=== PATIENT | male | born 1940 | race Two or more races ===

== ENCOUNTER 2024-06-01 14:40 | Inpatient (IN) | payer OTHER ==
[~2024-06-01] VITALS: Ht 182.9 cm; Wt 95.3 kg
[2024-06-01 15:46] VITALS: BP 125/59; TEMP 97.9; O2SAT 94
[2024-06-01] MEDS ORDERED: ACET-3117 PO (16:28)
[2024-06-01] MEDS ORDERED: INSU100V SQ (16:28)
[2024-06-01] MEDS ORDERED: ENOX40DI SQ (16:28)
[2024-06-01] MEDS ORDERED: TAMS-3 PO (16:28)
[2024-06-01] MEDS ORDERED: DULO60CA45 PO (16:28)
[2024-06-01] MEDS ORDERED: GABA-532 PO (16:28)
[2024-06-01] MEDS ORDERED: MAGN400O6 PO (16:28)
[2024-06-01] MEDS ORDERED: ONDANSETRON 4 MG/2 ML VIAL IV PRN (18:45)
[2024-06-01] MEDS ORDERED: REMEDY ESSENTIAL ZINC PASTE 113 GM TP PRN (18:45)
[2024-06-01] MEDS ORDERED: DEXTROSE 50% 50 ML DISP.SYRIN IV PRN (18:45)
[2024-06-01] MEDS ORDERED: ACETAMINOPHEN 325 MG TABLET PO PRN (18:45)
[2024-06-01] MEDS: MORPHINE SULFATE 4 MG/1 ML DISP.SYRIN IV PRN (19:05)
[2024-06-01] MEDS: LACTULOSE 20 G/30 ML LIQUID UDC PO ONE (19:30)
[2024-06-01 19:38] VITALS: BP 137/58; TEMP 98.8; O2SAT 94
[2024-06-01] MEDS: SENNOSIDES 1 TABLET PO SCH (20:35)
[2024-06-01] MEDS: BLOOD SUGAR DIAGNOSTIC 1 EACH STRIP VI SCH (20:37)
[2024-06-01] MEDS: INSULIN REGULAR, HUMAN 1000 UNIT/10 ML VIAL SQ PRN (20:39)
[2024-06-02 06:16] VITALS: BP 130/59; TEMP 97.4; O2SAT 92
[2024-06-02] MEDS: PANTOPRAZOLE SODIUM 40 MG TABLET.DR PO SCH (06:45)
[2024-06-02 07:04] LABS: BASOPHILS % (AUTO) 0.3 % (0.0-2.0); EOSINOPHILS # (AUTO) 0.2 K/uL (0.0-0.7); EOSINOPHILS % (AUTO) 1.9 % (0.0-7.0); HEMATOCRIT 31.6 % (36.7-47.1); HEMOGLOBIN 10.9 g/dL (12.5-16.3); LYMPHOCYTES # (AUTO) 0.5 K/uL (0.8-4.8); LYMPHOCYTES % (AUTO) 5.8 % (20.5-51.5); MEAN CORPUSCULAR HEMOGLOBIN 29.3 uug (23.8-33.4); MEAN CORPUSCULAR HGB CONC 34 g/dL (32.5-36.3); MONOCYTES # (AUTO) 0.3 K/uL (0.1-1.30); MONOCYTES % (AUTO) 3.3 % (0.0-11.0); NEUTROPHILS # (AUTO) 7.5 K/uL (1.8-8.9); NEUTROPHILS % (AUTO) 88.7 % (38.5-71.5); PLATELET COUNT (AUTO) 358 K/uL (152-348); RED BLOOD CELL COUNT(AUTO) 3.72 MIL/uL (4.06-5.63); RED CELL DISTRIBUTION WIDTH 17.3 % (12.1-16.2); WHITE BLOOD COUNT (AUTO) 8.5 K/uL (3.6-10.2)
[2024-06-02 07:23] LABS: DIFFERENTIAL COMMENT 1
[2024-06-02 07:33] LABS: CALCIUM 8.7 mg/dL (8.5-10.1); CARBON DIOXIDE 30 mmol/L (21-32); CHLORIDE 100 mmol/L (98-107); CHOLESTEROL 193 mg/dL (<200); CREATININE 0.9 mg/dL (0.6-1.3); GLUCOSE 267 mg/dL (74-106); HDL CHOLESTEROL 34 mg/dL (40-60); MAGNESIUM 1.8 mg/dL (1.8-2.4); PHOSPHOROUS 2.9 mg/dL (2.5-4.9); POTASSIUM 4.3 mmol/L (3.5-5.1); SODIUM SERUM 135 mmol/L (136-145); TRIGLYCERIDES 206 MG/DL (30-150); UREA NITROGEN, BLOOD 20 mg/dL (7-18)
[2024-06-02] MEDS: GABAPENTIN 100 MG CAPSULE PO SCH (08:23)
[2024-06-02] MEDS: MIRALAX 17 GM POWD.PACK PO SCH (08:23)
[2024-06-02] MEDS: TAMSULOSIN HCL 0.4 MG CAP.SR.24H PO SCH (08:24)
[2024-06-02] MEDS: ENOXAPARIN SODIUM 40 MG/0.4 ML DISP.SYRIN SQ SCH (08:24)
[2024-06-02] MEDS ORDERED: INSU3INS6 SQ (09:46)
[2024-06-02 11:31] VITALS: BP 143/53; TEMP 98.6; O2SAT 94
[2024-06-02] MEDS: GOLYTELY 4000 ML BOTTLE PO ONE (12:51)
[2024-06-02 15:24] VITALS: BP 135/58; TEMP 98.2; O2SAT 94
[2024-06-02 19:35] VITALS: BP 130/67; TEMP 98.3; O2SAT 93
[2024-06-03 06:25] VITALS: BP 117/63; TEMP 97.8; O2SAT 96
[2024-06-03 07:07] LABS: BASOPHILS % (AUTO) 0.5 % (0.0-2.0); EOSINOPHILS # (AUTO) 0.1 K/uL (0.0-0.7); EOSINOPHILS % (AUTO) 1.6 % (0.0-7.0); HEMATOCRIT 32.4 % (36.7-47.1); HEMOGLOBIN 10.9 g/dL (12.5-16.3); LYMPHOCYTES # (AUTO) 0.7 K/uL (0.8-4.8); LYMPHOCYTES % (AUTO) 8.9 % (20.5-51.5); MEAN CORPUSCULAR HEMOGLOBIN 28.6 uug (23.8-33.4); MEAN CORPUSCULAR HGB CONC 34 g/dL (32.5-36.3); MEAN CORPUSCULAR VOLUME 84.8 fL (73.0-96.2); MONOCYTES # (AUTO) 0.2 K/uL (0.1-1.30); MONOCYTES % (AUTO) 3.2 % (0.0-11.0); NEUTROPHILS # (AUTO) 6.4 K/uL (1.8-8.9); NEUTROPHILS % (AUTO) 85.8 % (38.5-71.5); PLATELET COUNT (AUTO) 352 K/uL (152-348); RED BLOOD CELL COUNT(AUTO) 3.82 MIL/uL (4.06-5.63); RED CELL DISTRIBUTION WIDTH 17.1 % (12.1-16.2); WHITE BLOOD COUNT (AUTO) 7.5 K/uL (3.6-10.2)
[2024-06-03 07:13] LABS: CALCIUM 8.7 mg/dL (8.5-10.1); CARBON DIOXIDE 28 mmol/L (21-32); CHLORIDE 103 mmol/L (98-107); CREATININE 0.9 mg/dL (0.6-1.3); GLUCOSE 239 mg/dL (74-106); MAGNESIUM 1.9 mg/dL (1.8-2.4); PHOSPHOROUS 3.1 mg/dL (2.5-4.9); POTASSIUM 3.9 mmol/L (3.5-5.1); SODIUM SERUM 140 mmol/L (136-145); UREA NITROGEN, BLOOD 20 mg/dL (7-18)
[2024-06-03 07:17] LABS: DIFFERENTIAL COMMENT 1
[2024-06-03] MEDS: INSULIN GLARGINE,HUM 300 UNITS/3 ML CARTRIDGE SQ SCH (09:50)
[2024-06-03 11:32] VITALS: BP 123/54; TEMP 98.8; O2SAT 96
[2024-06-03] MEDS ORDERED: PROPOFOL 200 MG/20 ML BOTTLE ONE (12:00)
[2024-06-03 16:00] VITALS: BP 122/50; TEMP 98.8; O2SAT 95
[2024-06-03 19:42] VITALS: BP 101/53; TEMP 98.2; O2SAT 98
[2024-06-04 06:00] VITALS: BP 111/73; TEMP 99.2; O2SAT 97
[2024-06-04] MEDS: MORPHINE SULFATE 2 MG/1 ML DISP.SYRIN IV ONE (06:29)
[2024-06-04 07:35] VITALS: BP 141/61; TEMP 97.6; O2SAT 97
[2024-06-04] MEDS: MUPIROCIN 2% OINT 22 GM TUBE NS SCH (08:11)
[2024-06-04 11:47] VITALS: BP 127/44; TEMP 97.3; O2SAT 99
[2024-06-04 16:00] VITALS: BP 115/55; TEMP 98; O2SAT 98
[2024-06-04 21:23] VITALS: BP 118/52; TEMP 97.7; O2SAT 96
[2024-06-05 00:46] VITALS: BP 124/50; TEMP 98.1; O2SAT 94
[2024-06-05 04:52] VITALS: BP 132/58; TEMP 98.1; O2SAT 96
[2024-06-05 11:37] VITALS: BP 116/59; TEMP 98.2; O2SAT 94
[2024-06-05 12:09] LABS: BASOPHILS % (AUTO) 0.4 % (0.0-2.0); EOSINOPHILS # (AUTO) 0.1 K/uL (0.0-0.7); EOSINOPHILS % (AUTO) 2.2 % (0.0-7.0); HEMATOCRIT 34.2 % (36.7-47.1); HEMOGLOBIN 11.1 g/dL (12.5-16.3); LYMPHOCYTES # (AUTO) 0.5 K/uL (0.8-4.8); LYMPHOCYTES % (AUTO) 8.5 % (20.5-51.5); MEAN CORPUSCULAR HGB CONC 33 g/dL (32.5-36.3); MEAN CORPUSCULAR VOLUME 85.8 fL (73.0-96.2); MONOCYTES # (AUTO) 0.2 K/uL (0.1-1.30); MONOCYTES % (AUTO) 3.5 % (0.0-11.0); NEUTROPHILS # (AUTO) 5.4 K/uL (1.8-8.9); NEUTROPHILS % (AUTO) 85.4 % (38.5-71.5); PLATELET COUNT (AUTO) 332 K/uL (152-348); RED BLOOD CELL COUNT(AUTO) 3.98 MIL/uL (4.06-5.63); RED CELL DISTRIBUTION WIDTH 17.3 % (12.1-16.2); WHITE BLOOD COUNT (AUTO) 6.3 K/uL (3.6-10.2)
[2024-06-05] MEDS: METOPROLOL TARTRATE 25 MG TABLET PO SCH (12:09)
[2024-06-05 12:20] LABS: CALCIUM 8.6 mg/dL (8.5-10.1); CARBON DIOXIDE 31 mmol/L (21-32); CHLORIDE 101 mmol/L (98-107); CREATININE 1.1 mg/dL (0.6-1.3); GLUCOSE 257 mg/dL (74-106); MAGNESIUM 1.7 mg/dL (1.8-2.4); POTASSIUM 4.2 mmol/L (3.5-5.1); SODIUM SERUM 138 mmol/L (136-145); UREA NITROGEN, BLOOD 22 mg/dL (7-18)
[2024-06-05 12:29] LABS: DIFFERENTIAL COMMENT 1
[2024-06-05] MEDS: MAGNESIUM OXIDE 400 MG TABLET PO ONE (14:47)
[2024-06-05 17:11] LABS: *BILIRUBIN,URIN NEGATIVE (NEGATIVE); *BLOOD, URINE 1+ (NEGATIVE); *CLARITY,URINE CLEAR (CLEAR); *COLOR,URINE YELLOW (YELLOW); *KETONES,URINE NEGATIVE (NEGATIVE); *PROTEIN,URINE NEGATIVE (NEGATIVE); *UROBILINOGEN,URINE 0.2 E.U./dl (NORMAL); LEUKOCYTE ESTERASE ,URINE 1+ (NEGATIVE); NITRITE, URINE NEGATIVE (NEGATIVE); PH,URINE 5.5 (5.0-8.0); UGLUCOSE NEGATIVE (NEGATIVE)
[2024-06-05 17:24] VITALS: BP 107/51; TEMP 98.3; O2SAT 94
[2024-06-05 17:24] LABS: BACTERIA,URINE FEW /HPF (NONE SEEN); SQUAMOUS EPITHELIAL CELL,UR FEW /HPF (NONE SEEN); WBC,URINE 20-50 /HPF (0-3)
[2024-06-05 19:14] VITALS: BP 109/62; TEMP 98.5; O2SAT 94
[2024-06-05] MEDS ORDERED: CEFTRIAXONE 1 G VIAL IM SCH (20:00)
[2024-06-05] MEDS ORDERED: CEFTRIAXONE 1 G VIAL IV SCH (20:00)
[2024-06-05] MEDS: CEFTRIAXONE 1 G in IV DEXTROSE 5% 50 ML IV SCH (20:21)
[2024-06-06] VITALS (8 sets, daily range): BP systolic 108–137; BP diastolic 48–62; TEMP 98–98.6; O2SAT 93–96
[2024-06-06] MEDS: LACTULOSE 20 G/30 ML LIQUID UDC PO PRN (03:46)
[2024-06-06] MEDS ORDERED: diphenhydrAMINE 25 MG CAP PO ONE (04:45)
[2024-06-06] MEDS: diphenhydrAMINE 25 MG CAP PO ONE (05:13)
[2024-06-06 07:09] LABS: CALCIUM 8.9 mg/dL (8.5-10.1); CARBON DIOXIDE 31 mmol/L (21-32); CHLORIDE 104 mmol/L (98-107); CREATININE 1.1 mg/dL (0.6-1.3); GLUCOSE 176 mg/dL (74-106); MAGNESIUM 1.9 mg/dL (1.8-2.4); POTASSIUM 4.1 mmol/L (3.5-5.1); SODIUM SERUM 140 mmol/L (136-145); UREA NITROGEN, BLOOD 19 mg/dL (7-18)
[2024-06-06] MEDS: MAGNESIUM SULFATE/D5W 100 ML IV SCH (09:49)
[2024-06-06] MEDS: GLUCERNA SHAKE 237 ML CAN PO SCH (16:51)
[2024-06-07] VITALS (9 sets, daily range): BP systolic 106–142; BP diastolic 42–70; TEMP 97.8–98.6; O2SAT 96–100
[2024-06-07] MEDS ORDERED: VANCOMYCIN 1000 MG VIAL ONE (11:22)
[2024-06-07] MEDS ORDERED: TRANEXAMIC ACID 1,000 MG/10 ML VIAL ONE (11:35)
[2024-06-07] MEDS ORDERED: HYDROMORPHONE 2 MG/1 ML DISP.SYRIN ONE (11:36)
[2024-06-07] MEDS ORDERED: FENTANYL CITRATE 100 MCG/2 ML AMPUL ONE (11:36)
[2024-06-07] MEDS ORDERED: ALBUMIN HUMAN 5% 250 ML ONE ×2 (11:37→14:14)
[2024-06-07] MEDS ORDERED: SUCCINYLCHOLINE CHLORIDE 200 MG/10 ML VIAL ONE (12:06)
[2024-06-07] MEDS ORDERED: ROCURONIUM BROMIDE 50 MG/5 ML VIAL ONE (12:06)
[2024-06-07] MEDS ORDERED: HYDROMORPHONE 1 MG/1 ML DISP.SYRIN ONE ×2 (15:40→16:42)
[2024-06-07] MEDS: HYDROMORPHONE 1 MG/1 ML DISP.SYRIN IVP STA (15:44)
[2024-06-07] MEDS ORDERED: INSULIN REGULAR, HUMAN 1000 UNIT/10 ML VIAL ONE (16:03)
[2024-06-07] MEDS: INSULIN REGULAR, HUMAN 1000 UNIT/10 ML VIAL SQ ONE (16:15)
[2024-06-07] MEDS: BLOOD SUGAR DIAGNOSTIC 1 EACH STRIP VI ONE (16:15)
[2024-06-07] MEDS ORDERED: HYDROMORPHONE 1 MG/1 ML DISP.SYRIN IV PRN (16:30)
[2024-06-07] MEDS: HYDROMORPHONE 1 MG/1 ML DISP.SYRIN IV PRN (16:54)
[2024-06-07] MEDS: IV D5W-0.45% NS +20 KCL 1,000 ML IV PRN (18:30)
[2024-06-07] MEDS: MORPHINE SULFATE 2 MG/1 ML DISP.SYRIN IV PRN (20:20)
[2024-06-07 21:52] LABS: HEMATOCRIT 34.3 % (36.7-47.1); HEMOGLOBIN 11.1 g/dL (12.5-16.3)
[2024-06-08] MEDS: HYDROCODONE/APAP 10-325 MG TABLET PO PRN (01:39)
[2024-06-08 06:34] VITALS: BP 137/58; TEMP 97.9; O2SAT 99
[2024-06-08 07:02] LABS: BASOPHILS % (AUTO) 0.3 % (0.0-2.0); EOSINOPHILS % (AUTO) 0.4 % (0.0-7.0); HEMATOCRIT 32.2 % (36.7-47.1); HEMOGLOBIN 10.5 g/dL (12.5-16.3); LYMPHOCYTES # (AUTO) 0.4 K/uL (0.8-4.8); LYMPHOCYTES % (AUTO) 7.2 % (20.5-51.5); MEAN CORPUSCULAR HEMOGLOBIN 28.3 uug (23.8-33.4); MEAN CORPUSCULAR HGB CONC 33 g/dL (32.5-36.3); MEAN CORPUSCULAR VOLUME 86.7 fL (73.0-96.2); MONOCYTES # (AUTO) 0.3 K/uL (0.1-1.30); MONOCYTES % (AUTO) 4.8 % (0.0-11.0); NEUTROPHILS # (AUTO) 5.1 K/uL (1.8-8.9); NEUTROPHILS % (AUTO) 87.3 % (38.5-71.5); PLATELET COUNT (AUTO) 250 K/uL (152-348); RED BLOOD CELL COUNT(AUTO) 3.72 MIL/uL (4.06-5.63); RED CELL DISTRIBUTION WIDTH 16.9 % (12.1-16.2); WHITE BLOOD COUNT (AUTO) 5.9 K/uL (3.6-10.2)
[2024-06-08 07:04] LABS: DIFFERENTIAL COMMENT 1
[2024-06-08 07:05] LABS: CALCIUM 8.2 mg/dL (8.5-10.1); CARBON DIOXIDE 27 mmol/L (21-32); CHLORIDE 103 mmol/L (98-107); GLUCOSE 318 mg/dL (74-106); POTASSIUM 4.9 mmol/L (3.5-5.1); SODIUM SERUM 136 mmol/L (136-145); UREA NITROGEN, BLOOD 22 mg/dL (7-18)
[2024-06-08] MEDS ORDERED: MORPHINE SULFATE 2 MG/1 ML DISP.SYRIN IV PRN (09:30)
[2024-06-08] MEDS: ENOXAPARIN SODIUM 40 MG/0.4 ML DISP.SYRIN SQ SCH (09:43)
[2024-06-08 11:12] VITALS: BP 114/49; TEMP 98.3; O2SAT 97
[2024-06-08 12:51] VITALS: O2SAT 97
[2024-06-08] MEDS: MORPHINE SULFATE 4 MG/1 ML DISP.SYRIN IV PRN (14:58)
[2024-06-08 15:05] VITALS: BP 119/49; TEMP 99.1; O2SAT 96
[2024-06-08 20:00] VITALS: BP 119/54; TEMP 101.1; O2SAT 96
[2024-06-09 04:22] VITALS: BP 117/57; TEMP 98.8
[2024-06-09 06:47] LABS: BASOPHILS % (AUTO) 0.3 % (0.0-2.0); EOSINOPHILS # (AUTO) 0.1 K/uL (0.0-0.7); EOSINOPHILS % (AUTO) 1.4 % (0.0-7.0); HEMATOCRIT 30.7 % (36.7-47.1); HEMOGLOBIN 10.4 g/dL (12.5-16.3); LYMPHOCYTES # (AUTO) 0.6 K/uL (0.8-4.8); LYMPHOCYTES % (AUTO) 8.4 % (20.5-51.5); MEAN CORPUSCULAR HEMOGLOBIN 29.2 uug (23.8-33.4); MEAN CORPUSCULAR HGB CONC 34 g/dL (32.5-36.3); MEAN CORPUSCULAR VOLUME 86.7 fL (73.0-96.2); MONOCYTES # (AUTO) 0.4 K/uL (0.1-1.30); NEUTROPHILS # (AUTO) 6.1 K/uL (1.8-8.9); NEUTROPHILS % (AUTO) 84.9 % (38.5-71.5); PLATELET COUNT (AUTO) 225 K/uL (152-348); RED BLOOD CELL COUNT(AUTO) 3.55 MIL/uL (4.06-5.63); RED CELL DISTRIBUTION WIDTH 16.8 % (12.1-16.2); WHITE BLOOD COUNT (AUTO) 7.2 K/uL (3.6-10.2)
[2024-06-09 06:57] LABS: CALCIUM 8.5 mg/dL (8.5-10.1); CARBON DIOXIDE 28 mmol/L (21-32); CHLORIDE 101 mmol/L (98-107); GLUCOSE 237 mg/dL (74-106); POTASSIUM 4.9 mmol/L (3.5-5.1); SODIUM SERUM 133 mmol/L (136-145); UREA NITROGEN, BLOOD 18 mg/dL (7-18)
[2024-06-09 07:00] LABS: DIFFERENTIAL COMMENT 1
[2024-06-09 10:59] VITALS: BP 109/42; TEMP 98.4; O2SAT 94
[2024-06-09 15:08] VITALS: BP 126/53; TEMP 98.5; O2SAT 93
[2024-06-09 19:30] VITALS: BP 121/54; TEMP 98.3; O2SAT 99
[2024-06-10 06:00] VITALS: BP 117/53; TEMP 97.5; O2SAT 94
[2024-06-10 11:23] VITALS: BP 141/48; TEMP 98.2; O2SAT 94
== END 2024-06-10 14:30 | DRG 467 ==
LOC: MEDSURG3 14:40 → TELE3 06-04 04:58 → MEDSURG3 06-07 08:19
PROVIDERS: ADMIT Nurse Practitioner Family; ATTEND Nurse Practitioner Family
PROC: 0SRS0JZ Replacement of Left Hip Joint, Femoral Surface with Synthetic Substitute, Open Approach (ICD-10-PCS; principal; 2024-06-07)
PROC: 0SPS0JZ Removal of Synthetic Substitute from Left Hip Joint, Femoral Surface, Open Approach (ICD-10-PCS; 2024-06-07)
PROC: 0QS904Z Reposition Left Femoral Shaft with Internal Fixation Device, Open Approach (ICD-10-PCS; 2024-06-07)
PROC: 30233N1 Transfusion of Nonautologous Red Blood Cells into Peripheral Vein, Percutaneous Approach (ICD-10-PCS; 2024-06-07)
DX: S72.002A Fracture of unspecified part of neck of left femur, initial encounter for closed fracture (principal); M97.02XA Periprosthetic fracture around internal prosthetic left hip joint, initial encounter; T84.031A Mechanical loosening of internal left hip prosthetic joint, initial encounter; N39.0 Urinary tract infection, site not specified; W18.39XA Other fall on same level, initial encounter; Y92.003 Bedroom of unspecified non-institutional (private) residence as the place of occurrence of the external cause; Z95.5 Presence of coronary angioplasty implant and graft; Z96.643 Presence of artificial hip joint, bilateral; Z95.1 Presence of aortocoronary bypass graft; I25.10 Atherosclerotic heart disease of native coronary artery without angina pectoris; Z96.0 Presence of urogenital implants; Z22.322 Carrier or suspected carrier of Methicillin resistant Staphylococcus aureus; I49.3 Ventricular premature depolarization; Z79.4 Long term (current) use of insulin; Z88.0 Allergy status to penicillin; I08.0 Rheumatic disorders of both mitral and aortic valves; E78.5 Hyperlipidemia, unspecified; E11.9 Type 2 diabetes mellitus without complications; K59.00 Constipation, unspecified; I10 Essential (primary) hypertension
CPT/HCPCS: 36415; 71045; 73501; 73503; 83735; 84100; 85018; 85025; 85730; 86850; 86900; 86901; 86920; 93005; 93307; 94760; A4663; A6209; A6213; C1713; C1776; G0378; J0330; J0690; J0696; J1171; J1650; J1815; J2270; J2405; J2765; J3010; J3370; J3475; J3490; J7050; P9016; P9045; Q0163

== ENCOUNTER 2024-06-20 08:41 | Inpatient (IN) | payer OTHER ==
[~2024-06-20] VITALS: Ht 170.2 cm; Wt 72.6 kg
[~2024-06-20 08:41] MED LIST: ACET-3117 PO; DULO60CA45 PO; ENOX40DI SQ; GABA-532 PO; INSU3INS6 SQ; MAGN400O6 PO; TAMS-3 PO
[2024-06-20] MEDS ORDERED: PIPERACILLIN SODIUM/TAZOBACTAM 4.5 G in IV DEXTROSE 5% 50 ML IV SCH (08:45)
[2024-06-20 09:11] LABS: BASOPHILS % (AUTO) 0.6 % (0.0-2.0); EOSINOPHILS # (AUTO) 0.2 K/uL (0.0-0.7); EOSINOPHILS % (AUTO) 1.7 % (0.0-7.0); HEMATOCRIT 28.9 % (36.7-47.1); HEMOGLOBIN 9.8 g/dL (12.5-16.3); LYMPHOCYTES # (AUTO) 0.4 K/uL (0.8-4.8); LYMPHOCYTES % (AUTO) 4.6 % (20.5-51.5); MEAN CORPUSCULAR HEMOGLOBIN 28.7 uug (23.8-33.4); MEAN CORPUSCULAR HGB CONC 34 g/dL (32.5-36.3); MEAN CORPUSCULAR VOLUME 85.3 fL (73.0-96.2); MONOCYTES # (AUTO) 0.2 K/uL (0.1-1.30); MONOCYTES % (AUTO) 2.7 % (0.0-11.0); NEUTROPHILS # (AUTO) 7.9 K/uL (1.8-8.9); NEUTROPHILS % (AUTO) 90.4 % (38.5-71.5); PLATELET COUNT (AUTO) 224 K/uL (152-348); RED BLOOD CELL COUNT(AUTO) 3.39 MIL/uL (4.06-5.63); RED CELL DISTRIBUTION WIDTH 17.6 % (12.1-16.2); WHITE BLOOD COUNT (AUTO) 8.8 K/uL (3.6-10.2)
[2024-06-20 09:12] LABS: DIFFERENTIAL COMMENT 1
[2024-06-20] MEDS: IV NS 1000 ML 1,000 ML IV ONE (09:12)
[2024-06-20 09:20] LABS: CALCIUM 8.4 mg/dL (8.5-10.1); CARBON DIOXIDE 30 mmol/L (21-32); CHLORIDE 107 mmol/L (98-107); CREATININE 0.9 mg/dL (0.6-1.3); GLUCOSE 153 mg/dL (74-106); SODIUM SERUM 144 mmol/L (136-145); UREA NITROGEN, BLOOD 18 mg/dL (7-18)
[2024-06-20 09:26] LABS: ALANINE AMINOTRANSFERASE 20 U/L (16-63); ALBUMIN 1.9 g/dL (3.4-5.0); ALKALINE PHOSPHATASE 288 U/L (50-136); ASPARTATE AMINOTRANSFERASE 16 U/L (15-37); BILIRUBIN,DIRECT 0.1 mg/dL (0.0-0.2); BILIRUBIN,TOTAL 0.5 mg/dL (0.2-1.0); TOTAL PROTEIN, SERUM 5.9 g/dL (6.4-8.2)
[2024-06-20] MEDS: VANCOMYCIN IV 1,000 MG in IV DEXTROSE 5% 250 ML IV ONE (09:45)
[2024-06-20] MEDS: PIPERACILLIN SODIUM/TAZOBACTAM 4.5 G in IV DEXTROSE 5% 50 ML IV ONE (09:59)
[2024-06-20] MEDS ORDERED: VANCOMYCIN IV 200 ML ONE (11:15)
[2024-06-20] MEDS ORDERED: MAGNESIUM HYDROXIDE 30 ML LIQUID UDC PO SCH (12:30)
[2024-06-20] MEDS ORDERED: REMEDY ESSENTIAL ZINC PASTE 113 GM TP PRN (12:45)
[2024-06-20] MEDS ORDERED: MAGNESIUM HYDROXIDE 30 ML LIQUID UDC PO PRN (12:45)
[2024-06-20] MEDS ORDERED: ONDANSETRON 4 MG/2 ML VIAL IV PRN (12:45)
[2024-06-20] MEDS: MORPHINE SULFATE 4 MG/1 ML DISP.SYRIN IV PRN (13:11)
[2024-06-20] MEDS: GABAPENTIN 100 MG CAPSULE PO SCH (13:51)
[2024-06-20] MEDS ORDERED: HYDROCODONE/APAP 10-325 MG TABLET ONE (16:50)
[2024-06-20] MEDS: HYDROCODONE/APAP 10-325 MG TABLET PO ONE (16:55)
[2024-06-20] MEDS ORDERED: KETAMINE HCL 500 MG/10 ML INJ IV ONE (18:00)
[2024-06-20] MEDS ORDERED: ONDANSETRON 4 MG/2 ML VIAL IV ONE (18:00)
[2024-06-20] MEDS ORDERED: PIPERACILLIN/TAZOBACTAM/D5W 50 ML IV ONE (18:40)
[2024-06-20] MEDS: PIPERACILLIN SODIUM/TAZOBACTAM 3.375 G in IV DEXTROSE 5% 50 ML IV SCH (18:54)
[2024-06-20] MEDS ORDERED: INSULIN GLARGINE,HUM 300 UNITS/3 ML CARTRIDGE SQ ONE (21:58)
[2024-06-20] MEDS: INSULIN GLARGINE,HUM 300 UNITS/3 ML CARTRIDGE SQ SCH (22:00)
[2024-06-20] MEDS ORDERED: MORPHINE SULFATE 4 MG/1 ML DISP.SYRIN ONE (22:35)
[2024-06-20 23:05] VITALS: BP 142/38; TEMP 98.6; O2SAT 100
[2024-06-21] MEDS ORDERED: PIPERACILLIN/TAZOBACTAM/D5W 100 ML IV ONE (00:03)
[2024-06-21] MEDS ORDERED: VANCOMYCIN IV 200 ML ONE (00:04)
[2024-06-21] MEDS: PIPERACILLIN SODIUM/TAZOBACTAM 3.375 G in IV DEXTROSE 5% 50 ML IV SCH ×2 (00:08→12:44)
[2024-06-21 06:00] VITALS: BP 143/60; TEMP 97.8; O2SAT 100
[2024-06-21 06:42] LABS: BASOPHILS % (AUTO) 0.2 % (0.0-2.0); EOSINOPHILS # (AUTO) 0.2 K/uL (0.0-0.7); EOSINOPHILS % (AUTO) 2.8 % (0.0-7.0); HEMATOCRIT 26.4 % (36.7-47.1); LYMPHOCYTES # (AUTO) 0.5 K/uL (0.8-4.8); MEAN CORPUSCULAR HGB CONC 34 g/dL (32.5-36.3); MEAN CORPUSCULAR VOLUME 85.2 fL (73.0-96.2); MONOCYTES # (AUTO) 0.2 K/uL (0.1-1.30); MONOCYTES % (AUTO) 3.9 % (0.0-11.0); NEUTROPHILS # (AUTO) 5.4 K/uL (1.8-8.9); NEUTROPHILS % (AUTO) 85.1 % (38.5-71.5); PLATELET COUNT (AUTO) 232 K/uL (152-348); RED CELL DISTRIBUTION WIDTH 18.1 % (12.1-16.2); WHITE BLOOD COUNT (AUTO) 6.3 K/uL (3.6-10.2)
[2024-06-21 06:44] LABS: DIFFERENTIAL COMMENT 1
[2024-06-21 06:55] LABS: CALCIUM 8.1 mg/dL (8.5-10.1); CARBON DIOXIDE 31 mmol/L (21-32); CHLORIDE 107 mmol/L (98-107); CREATININE 1.1 mg/dL (0.6-1.3); GLUCOSE 234 mg/dL (74-106); MAGNESIUM 1.8 mg/dL (1.8-2.4); PHOSPHOROUS 3.1 mg/dL (2.5-4.9); POTASSIUM 4.8 mmol/L (3.5-5.1); SODIUM SERUM 143 mmol/L (136-145); UREA NITROGEN, BLOOD 16 mg/dL (7-18)
[2024-06-21] MEDS ORDERED: VANCOMYCIN IV 1,000 MG in IV DEXTROSE 5% 250 ML IV ONE (07:00)
[2024-06-21] MEDS: DULOXETINE 60 MG CAPSULE.DR PO SCH (08:42)
[2024-06-21] MEDS: TAMSULOSIN HCL 0.4 MG CAP.SR.24H PO SCH (08:42)
[2024-06-21] MEDS: ENOXAPARIN SODIUM 40 MG/0.4 ML DISP.SYRIN SQ SCH (08:44)
[2024-06-21] MEDS ORDERED: VANCOMYCIN IV 1,000 MG in IV DEXTROSE 5% 250 ML IV SCH (09:00)
[2024-06-21] MEDS: VANCOMYCIN IV 1,000 MG in IV DEXTROSE 5% 250 ML IV SCH (09:45)
[2024-06-21 16:00] VITALS: BP 126/52; TEMP 97.9; O2SAT 97
[2024-06-21 19:00] VITALS: BP 126/44; TEMP 98.9; O2SAT 98
[2024-06-22 06:00] VITALS: BP 127/49; TEMP 97.9; O2SAT 96
[2024-06-22 07:32] LABS: BASOPHILS % (AUTO) 0.5 % (0.0-2.0); EOSINOPHILS # (AUTO) 0.2 K/uL (0.0-0.7); HEMATOCRIT 28.9 % (36.7-47.1); HEMOGLOBIN 9.7 g/dL (12.5-16.3); LYMPHOCYTES # (AUTO) 0.7 K/uL (0.8-4.8); LYMPHOCYTES % (AUTO) 14.3 % (20.5-51.5); MEAN CORPUSCULAR HEMOGLOBIN 28.8 uug (23.8-33.4); MEAN CORPUSCULAR HGB CONC 34 g/dL (32.5-36.3); MEAN CORPUSCULAR VOLUME 85.4 fL (73.0-96.2); MONOCYTES # (AUTO) 0.3 K/uL (0.1-1.30); MONOCYTES % (AUTO) 5.8 % (0.0-11.0); NEUTROPHILS # (AUTO) 3.6 K/uL (1.8-8.9); NEUTROPHILS % (AUTO) 75.4 % (38.5-71.5); PLATELET COUNT (AUTO) 250 K/uL (152-348); RED BLOOD CELL COUNT(AUTO) 3.38 MIL/uL (4.06-5.63); RED CELL DISTRIBUTION WIDTH 17.5 % (12.1-16.2); WHITE BLOOD COUNT (AUTO) 4.7 K/uL (3.6-10.2)
[2024-06-22 07:50] LABS: DIFFERENTIAL COMMENT 1
[2024-06-22 07:51] LABS: CALCIUM 8.6 mg/dL (8.5-10.1); CARBON DIOXIDE 30 mmol/L (21-32); CHLORIDE 107 mmol/L (98-107); CREATININE 0.9 mg/dL (0.6-1.3); GLUCOSE 197 mg/dL (74-106); MAGNESIUM 1.9 mg/dL (1.8-2.4); PHOSPHOROUS 3.2 mg/dL (2.5-4.9); POTASSIUM 4.1 mmol/L (3.5-5.1); SODIUM SERUM 144 mmol/L (136-145); UREA NITROGEN, BLOOD 12 mg/dL (7-18)
[2024-06-22 10:51] VITALS: BP 107/43; TEMP 97.6; O2SAT 94
[2024-06-22] MEDS ORDERED: GLUC1KIT SQ (14:16)
[2024-06-22] MEDS ORDERED: BISA10SU61 RC (14:16)
[2024-06-22] MEDS ORDERED: MULT-213 PO (14:16)
[2024-06-22] MEDS ORDERED: PANT40TA49 PO (14:16)
[2024-06-22] MEDS ORDERED: LACT10SO58 PO (14:16)
[2024-06-22] MEDS ORDERED: SENN8.6T19 PO (14:16)
[2024-06-22] MEDS ORDERED: METO25TA6 PO (14:16)
[2024-06-22] MEDS ORDERED: POLY17PO4 PO (14:16)
[2024-06-22] MEDS ORDERED: INSU100V28 SQ (14:26)
[2024-06-22] MEDS ORDERED: DEXTROSE 50% 50 ML DISP.SYRIN IV PRN (14:45)
[2024-06-22 14:58] VITALS: BP 128/53; TEMP 98.4; O2SAT 95
[2024-06-22] MEDS: INSULIN REGULAR, HUMAN 1000 UNIT/10 ML VIAL SQ PRN (17:01)
[2024-06-22] MEDS: BLOOD SUGAR DIAGNOSTIC 1 EACH STRIP VI SCH (17:08)
[2024-06-22 19:00] VITALS: BP 140/55; TEMP 98.5; O2SAT 98
[2024-06-22] MEDS: SENNOSIDES 1 TABLET PO SCH (20:45)
[2024-06-23 06:00] VITALS: BP 144/49; TEMP 98.6; O2SAT 96
[2024-06-23] MEDS: PANTOPRAZOLE SODIUM 40 MG TABLET.DR PO SCH (06:26)
[2024-06-23 08:03] LABS: BASOPHILS % (AUTO) 0.4 % (0.0-2.0); EOSINOPHILS # (AUTO) 0.2 K/uL (0.0-0.7); EOSINOPHILS % (AUTO) 4.6 % (0.0-7.0); HEMATOCRIT 29.9 % (36.7-47.1); LYMPHOCYTES # (AUTO) 0.6 K/uL (0.8-4.8); LYMPHOCYTES % (AUTO) 14.1 % (20.5-51.5); MEAN CORPUSCULAR HEMOGLOBIN 28.5 uug (23.8-33.4); MEAN CORPUSCULAR HGB CONC 34 g/dL (32.5-36.3); MONOCYTES # (AUTO) 0.2 K/uL (0.1-1.30); MONOCYTES % (AUTO) 5.2 % (0.0-11.0); NEUTROPHILS # (AUTO) 3.4 K/uL (1.8-8.9); NEUTROPHILS % (AUTO) 75.7 % (38.5-71.5); PLATELET COUNT (AUTO) 303 K/uL (152-348); RED BLOOD CELL COUNT(AUTO) 3.52 MIL/uL (4.06-5.63); RED CELL DISTRIBUTION WIDTH 17.9 % (12.1-16.2); WHITE BLOOD COUNT (AUTO) 4.5 K/uL (3.6-10.2)
[2024-06-23 08:25] LABS: DIFFERENTIAL COMMENT 1
[2024-06-23 08:40] LABS: CALCIUM 8.6 mg/dL (8.5-10.1); CARBON DIOXIDE 32 mmol/L (21-32); CHLORIDE 104 mmol/L (98-107); GLUCOSE 91 mg/dL (74-106); MAGNESIUM 1.8 mg/dL (1.8-2.4); PHOSPHOROUS 3.2 mg/dL (2.5-4.9); POTASSIUM 3.7 mmol/L (3.5-5.1); SODIUM SERUM 142 mmol/L (136-145); UREA NITROGEN, BLOOD 12 mg/dL (7-18)
[2024-06-23] MEDS: MULTIVIT, IRON, MIN NO. 8, FA TABLET PO SCH (09:31)
[2024-06-23] MEDS: MIRALAX 17 GM POWD.PACK PO SCH (09:31)
[2024-06-23 11:31] VITALS: BP 115/46; TEMP 97.2; O2SAT 98
[2024-06-23 15:59] VITALS: BP 134/49; TEMP 98.6; O2SAT 96
[2024-06-23 19:30] VITALS: BP 114/41; TEMP 97.3; O2SAT 97
[2024-06-24 06:30] VITALS: BP 134/59; TEMP 97.5; O2SAT 95
[2024-06-24 06:55] LABS: BASOPHILS % (AUTO) 0.4 % (0.0-2.0); EOSINOPHILS # (AUTO) 0.1 K/uL (0.0-0.7); EOSINOPHILS % (AUTO) 1.8 % (0.0-7.0); HEMATOCRIT 27.7 % (36.7-47.1); HEMOGLOBIN 9.4 g/dL (12.5-16.3); LYMPHOCYTES # (AUTO) 0.5 K/uL (0.8-4.8); LYMPHOCYTES % (AUTO) 8.2 % (20.5-51.5); MEAN CORPUSCULAR HEMOGLOBIN 28.4 uug (23.8-33.4); MEAN CORPUSCULAR HGB CONC 34 g/dL (32.5-36.3); MEAN CORPUSCULAR VOLUME 83.9 fL (73.0-96.2); MONOCYTES # (AUTO) 0.3 K/uL (0.1-1.30); MONOCYTES % (AUTO) 5.1 % (0.0-11.0); NEUTROPHILS # (AUTO) 5.2 K/uL (1.8-8.9); NEUTROPHILS % (AUTO) 84.5 % (38.5-71.5); PLATELET COUNT (AUTO) 308 K/uL (152-348); RED BLOOD CELL COUNT(AUTO) 3.31 MIL/uL (4.06-5.63); RED CELL DISTRIBUTION WIDTH 17.9 % (12.1-16.2); WHITE BLOOD COUNT (AUTO) 6.1 K/uL (3.6-10.2)
[2024-06-24 07:01] LABS: DIFFERENTIAL COMMENT 1
[2024-06-24 07:16] LABS: CALCIUM 8.6 mg/dL (8.5-10.1); CARBON DIOXIDE 33 mmol/L (21-32); CHLORIDE 109 mmol/L (98-107); CREATININE 0.9 mg/dL (0.6-1.3); GLUCOSE 63 mg/dL (74-106); MAGNESIUM 1.9 mg/dL (1.8-2.4); PHOSPHOROUS 3.4 mg/dL (2.5-4.9); POTASSIUM 3.8 mmol/L (3.5-5.1); SODIUM SERUM 146 mmol/L (136-145); UREA NITROGEN, BLOOD 9 mg/dL (7-18)
[2024-06-24] MEDS: VANCOMYCIN HCL 750 MG in IV DEXTROSE 5% 250 ML IV SCH (10:17)
[2024-06-24 11:40] VITALS: BP 140/51; TEMP 98.5; O2SAT 98
[2024-06-24 16:00] VITALS: BP 140/51; TEMP 98.5; O2SAT 98
[2024-06-24 19:30] VITALS: BP 124/55; TEMP 99.2; O2SAT 96
[2024-06-24] MEDS ORDERED: VANCOMYCIN 1000 MG VIAL ONE (21:24)
[2024-06-25 06:05] VITALS: BP 134/57; TEMP 97.7; O2SAT 98
[2024-06-25 07:38] LABS: BASOPHILS % (AUTO) 0.7 % (0.0-2.0); EOSINOPHILS # (AUTO) 0.3 K/uL (0.0-0.7); EOSINOPHILS % (AUTO) 5.6 % (0.0-7.0); HEMATOCRIT 28.5 % (36.7-47.1); HEMOGLOBIN 9.5 g/dL (12.5-16.3); LYMPHOCYTES # (AUTO) 0.8 K/uL (0.8-4.8); LYMPHOCYTES % (AUTO) 17.8 % (20.5-51.5); MEAN CORPUSCULAR HEMOGLOBIN 28.3 uug (23.8-33.4); MEAN CORPUSCULAR HGB CONC 33 g/dL (32.5-36.3); MEAN CORPUSCULAR VOLUME 84.8 fL (73.0-96.2); MONOCYTES # (AUTO) 0.3 K/uL (0.1-1.30); MONOCYTES % (AUTO) 5.6 % (0.0-11.0); NEUTROPHILS # (AUTO) 3.2 K/uL (1.8-8.9); NEUTROPHILS % (AUTO) 70.3 % (38.5-71.5); PLATELET COUNT (AUTO) 321 K/uL (152-348); RED BLOOD CELL COUNT(AUTO) 3.36 MIL/uL (4.06-5.63); RED CELL DISTRIBUTION WIDTH 18.4 % (12.1-16.2); WHITE BLOOD COUNT (AUTO) 4.6 K/uL (3.6-10.2)
[2024-06-25 07:50] LABS: CARBON DIOXIDE 33 mmol/L (21-32); CHLORIDE 107 mmol/L (98-107); GLUCOSE 71 mg/dL (74-106); MAGNESIUM 1.8 mg/dL (1.8-2.4); PHOSPHOROUS 3.2 mg/dL (2.5-4.9); POTASSIUM 4.3 mmol/L (3.5-5.1); SODIUM SERUM 144 mmol/L (136-145); UREA NITROGEN, BLOOD 9 mg/dL (7-18)
[2024-06-25 07:51] LABS: DIFFERENTIAL COMMENT 1
[2024-06-25 11:32] VITALS: BP 135/53; TEMP 98.7; O2SAT 95
[2024-06-25] MEDS: VANCOMYCIN HCL 750 MG in IV DEXTROSE 5% 250 ML IV SCH (11:57)
[2024-06-25 15:44] VITALS: BP 119/54; TEMP 98.4; O2SAT 97
[2024-06-25 20:11] VITALS: BP 113/51; TEMP 99; O2SAT 98
[2024-06-25 20:17] VITALS: BP 113/51; TEMP 99; O2SAT 98
[2024-06-25] MEDS: CEFTRIAXONE 1 G in IV DEXTROSE 5% 50 ML IV SCH (21:08)
[2024-06-26 04:39] VITALS: BP 144/66; TEMP 98; O2SAT 97
[2024-06-26 06:41] LABS: BASOPHILS # (AUTO) 0.1 K/UL (0.0-0.2); BASOPHILS % (AUTO) 1.3 % (0.0-2.0); EOSINOPHILS # (AUTO) 0.2 K/uL (0.0-0.7); EOSINOPHILS % (AUTO) 5.3 % (0.0-7.0); HEMATOCRIT 28.1 % (36.7-47.1); HEMOGLOBIN 9.5 g/dL (12.5-16.3); LYMPHOCYTES # (AUTO) 0.8 K/uL (0.8-4.8); MEAN CORPUSCULAR HEMOGLOBIN 28.5 uug (23.8-33.4); MEAN CORPUSCULAR HGB CONC 34 g/dL (32.5-36.3); MEAN CORPUSCULAR VOLUME 84.5 fL (73.0-96.2); MONOCYTES # (AUTO) 0.3 K/uL (0.1-1.30); MONOCYTES % (AUTO) 7.3 % (0.0-11.0); NEUTROPHILS # (AUTO) 3.2 K/uL (1.8-8.9); NEUTROPHILS % (AUTO) 68.1 % (38.5-71.5); PLATELET COUNT (AUTO) 304 K/uL (152-348); RED BLOOD CELL COUNT(AUTO) 3.32 MIL/uL (4.06-5.63); RED CELL DISTRIBUTION WIDTH 18.1 % (12.1-16.2); WHITE BLOOD COUNT (AUTO) 4.6 K/uL (3.6-10.2)
[2024-06-26 06:51] LABS: DIFFERENTIAL COMMENT 1
[2024-06-26 07:27] LABS: CALCIUM 8.3 mg/dL (8.5-10.1); CARBON DIOXIDE 30 mmol/L (21-32); CHLORIDE 106 mmol/L (98-107); CREATININE 0.9 mg/dL (0.6-1.3); GLUCOSE 158 mg/dL (74-106); MAGNESIUM 1.8 mg/dL (1.8-2.4); SODIUM SERUM 142 mmol/L (136-145); UREA NITROGEN, BLOOD 9 mg/dL (7-18)
[2024-06-26 11:36] VITALS: BP 139/88; TEMP 98.9; O2SAT 96
[2024-06-26 15:36] VITALS: BP 119/63; TEMP 97.9; O2SAT 97
[2024-06-26 19:35] VITALS: TEMP 98.3
[2024-06-26 20:00] VITALS: BP 124/59; TEMP 98.3
[2024-06-27 05:01] VITALS: BP 133/61; TEMP 98.4; O2SAT 94
[2024-06-27 07:48] LABS: BASOPHILS % (AUTO) 0.7 % (0.0-2.0); EOSINOPHILS # (AUTO) 0.2 K/uL (0.0-0.7); EOSINOPHILS % (AUTO) 3.3 % (0.0-7.0); HEMATOCRIT 30.1 % (36.7-47.1); HEMOGLOBIN 9.9 g/dL (12.5-16.3); LYMPHOCYTES # (AUTO) 0.7 K/uL (0.8-4.8); LYMPHOCYTES % (AUTO) 14.1 % (20.5-51.5); MEAN CORPUSCULAR HEMOGLOBIN 27.9 uug (23.8-33.4); MEAN CORPUSCULAR HGB CONC 33 g/dL (32.5-36.3); MEAN CORPUSCULAR VOLUME 84.7 fL (73.0-96.2); MONOCYTES # (AUTO) 0.3 K/uL (0.1-1.30); MONOCYTES % (AUTO) 6.5 % (0.0-11.0); NEUTROPHILS # (AUTO) 3.7 K/uL (1.8-8.9); NEUTROPHILS % (AUTO) 75.4 % (38.5-71.5); PLATELET COUNT (AUTO) 342 K/uL (152-348); RED BLOOD CELL COUNT(AUTO) 3.55 MIL/uL (4.06-5.63); RED CELL DISTRIBUTION WIDTH 18.2 % (12.1-16.2); WHITE BLOOD COUNT (AUTO) 4.9 K/uL (3.6-10.2)
[2024-06-27 07:57] LABS: CALCIUM 9.1 mg/dL (8.5-10.1); CARBON DIOXIDE 32 mmol/L (21-32); CHLORIDE 107 mmol/L (98-107); GLUCOSE 90 mg/dL (74-106); MAGNESIUM 1.8 mg/dL (1.8-2.4); PHOSPHOROUS 3.3 mg/dL (2.5-4.9); POTASSIUM 4.2 mmol/L (3.5-5.1); SODIUM SERUM 144 mmol/L (136-145); UREA NITROGEN, BLOOD 8 mg/dL (7-18)
[2024-06-27 08:07] LABS: DIFFERENTIAL COMMENT 1
[2024-06-27 11:36] VITALS: BP 129/63; TEMP 98.4; O2SAT 99
[2024-06-27] MEDS ORDERED: DOXY100C5 PO (15:22)
[2024-06-27 15:36] VITALS: BP 133/85; TEMP 97.8; O2SAT 99
[2024-06-27 19:35] VITALS: BP 139/61; TEMP 99; O2SAT 95
[2024-06-27] MEDS: DOXYCYCLINE HYCLATE 100 MG TABLET PO SCH (21:04)
[2024-06-28 05:53] VITALS: BP 131/62; TEMP 98.5; O2SAT 95
[2024-06-28 06:59] LABS: BASOPHILS % (AUTO) 0.4 % (0.0-2.0); CALCIUM 8.8 mg/dL (8.5-10.1); CARBON DIOXIDE 31 mmol/L (21-32); CHLORIDE 107 mmol/L (98-107); CREATININE 0.9 mg/dL (0.6-1.3); EOSINOPHILS # (AUTO) 0.1 K/uL (0.0-0.7); EOSINOPHILS % (AUTO) 2.3 % (0.0-7.0); GLUCOSE 67 mg/dL (74-106); HEMATOCRIT 29.2 % (36.7-47.1); HEMOGLOBIN 9.7 g/dL (12.5-16.3); LYMPHOCYTES # (AUTO) 0.7 K/uL (0.8-4.8); LYMPHOCYTES % (AUTO) 13.5 % (20.5-51.5); MAGNESIUM 1.8 mg/dL (1.8-2.4); MEAN CORPUSCULAR HEMOGLOBIN 28.1 uug (23.8-33.4); MEAN CORPUSCULAR HGB CONC 33 g/dL (32.5-36.3); MEAN CORPUSCULAR VOLUME 84.6 fL (73.0-96.2); MONOCYTES # (AUTO) 0.3 K/uL (0.1-1.30); MONOCYTES % (AUTO) 6.6 % (0.0-11.0); NEUTROPHILS # (AUTO) 4.1 K/uL (1.8-8.9); NEUTROPHILS % (AUTO) 77.2 % (38.5-71.5); PHOSPHOROUS 3.5 mg/dL (2.5-4.9); PLATELET COUNT (AUTO) 298 K/uL (152-348); POTASSIUM 4.2 mmol/L (3.5-5.1); RED BLOOD CELL COUNT(AUTO) 3.45 MIL/uL (4.06-5.63); SODIUM SERUM 144 mmol/L (136-145); UREA NITROGEN, BLOOD 11 mg/dL (7-18); WHITE BLOOD COUNT (AUTO) 5.3 K/uL (3.6-10.2)
[2024-06-28 08:30] LABS: DIFFERENTIAL COMMENT 1
[2024-06-28] MEDS ORDERED: IBUP-1955 PO (11:00)
[2024-06-28] MEDS ORDERED: DOXY100C5 PO (11:00)
[2024-06-28 12:00] VITALS: BP 123/56; TEMP 98.4; O2SAT 99
== END 2024-06-28 14:55 | DRG 919 ==
LOC: ER 08:41 → MEDSURG3 22:08
PROVIDERS: ADMIT Nurse Practitioner Acute Care; ATTEND Nurse Practitioner Acute Care
DX: L76.32 Postprocedural hematoma of skin and subcutaneous tissue following other procedure (principal); E43 Unspecified severe protein-calorie malnutrition; D63.8 Anemia in other chronic diseases classified elsewhere; E88.09 Other disorders of plasma-protein metabolism, not elsewhere classified; Z96.642 Presence of left artificial hip joint; Z95.1 Presence of aortocoronary bypass graft; E11.65 Type 2 diabetes mellitus with hyperglycemia; M21.371 Foot drop, right foot; G89.29 Other chronic pain; I25.10 Atherosclerotic heart disease of native coronary artery without angina pectoris; Z79.4 Long term (current) use of insulin; Z79.899 Other long term (current) drug therapy; N40.0 Benign prostatic hyperplasia without lower urinary tract symptoms; F32.A Depression, unspecified; I10 Essential (primary) hypertension; E78.5 Hyperlipidemia, unspecified; M25.461 Effusion, right knee; M17.11 Unilateral primary osteoarthritis, right knee
CPT/HCPCS: 36415; 71045; 73501; 73562; 83605; 83735; 84100; 85025; G0378; J0696; J1650; J1815; J2270; J2543; J3370; J3490; J7040; J7050